=== PATIENT | female | born 1995 | race Caucasian/White ===

== ENCOUNTER 2021-05-29 15:30 | Inpatient (IN) | payer MEDICAID, SELFPAY ==
[~2021-05-29] VITALS: Ht 160 cm; Wt 90.7 kg
[2021-05-29] MEDS ORDERED: METHYLERGONOVINE 0.2 MG/ML AMP IM PRN (16:05)
[2021-05-29] MEDS: LACTATED RINGERS 1,000 ML IV SCH ×2 (16:05→19:46)
[2021-05-29] MEDS ORDERED: PROMETHAZINE 25 MG/ML VIAL IM PRN (16:05)
[2021-05-29] MEDS ORDERED: NALBUPHINE 10 MG/ML AMP IVP PRN (16:05)
[2021-05-29] MEDS ORDERED: OXYTOCIN 20 UNITS in LACTATED RINGERS 1,000 ML IV SCH (16:05)
[2021-05-29 16:50] LABS: BASOPHILS % (AUTO) 0.4 % (0.0-2.0); HEMATOCRIT 27.2 % (36-48); HEMOGLOBIN 8.6 g/dL (12.0-16.0); LYMPHOCYTES # (AUTO) 1.5 K/uL (2.5-16.5); LYMPHOCYTES % (AUTO) 18.6 % (20.5-51.1); MEAN CORPUSCULAR HEMOGLOBIN 22 pg (27-31); MEAN CORPUSCULAR HGB CONC 32 g/dL (33-37); MEAN CORPUSCULAR VOLUME 70.1 fL (80-94); MONOCYTES # (AUTO) 0.8 K/uL (0.8-1.0); MONOCYTES % (AUTO) 9.2 % (1.7-9.3); NEUTROPHILS # (AUTO) 5.9 K/uL (1.8-7.7); NEUTROPHILS % (AUTO) 71.8 % (42.2-75.2); PLATELET COUNT (AUTO) 220 K/uL (140-450); RED BLOOD CELL COUNT(AUTO) 3.88 MIL/uL (4.20-5.40); RED CELL DISTRIBUTION WIDTH 15.2 % (11.6-13.7); WHITE BLOOD COUNT (AUTO) 8.2 K/uL (4.8-10.8)
[2021-05-29 17:06] LABS: ALBUMIN 2.7 g/dL (3.4-5.0); ANION GAP 15.6 (8-16); CARBON DIOXIDE 23.5 mmol/L (21-32); CREATININE 0.9 mg/dL (0.6-1.3); POTASSIUM 4.1 mmol/L (3.5-5.1); TOTAL BILIRUBIN 0.4 mg/dL (0.0-1.0)
[2021-05-29 18:14] VITALS: BP 123/67
[2021-05-29] MEDS ORDERED: OXYTOCIN 20 UNITS/LR PREMIX 1,000 ML IV ONE (18:51)
[2021-05-29] MEDS ORDERED: ROPIVACAINE 0.2%/NS PREMIX 200 ML EPI ONE (19:07)
[2021-05-30] MEDS ORDERED: IBUPROFEN 800 MG TAB PO PRN (00:05)
[2021-05-30] MEDS ORDERED: OXYTOCIN 10 UNITS/ML VIAL IM PRN (00:05)
[2021-05-30] MEDS ORDERED: oxyCODONE/APAP 5/325 MG 1 TAB TAB PO PRN ×2 (00:05)
[2021-05-30] MEDS ORDERED: BENZOCAINE/MENTHOL 20%-0.5% 60 GM CAN TP PRN (00:05)
[2021-05-30] MEDS ORDERED: METHYLERGONOVINE 0.2 MG TAB PO PRN (00:05)
[2021-05-30] MEDS ORDERED: METHYLERGONOVINE 0.2 MG/ML AMP IM PRN (00:05)
[2021-05-30] MEDS ORDERED: TEMAZEPAM 15 MG CAP PO PRN (00:05)
[2021-05-30 08:06] LABS: APPEARANCE,URINE CLEAR (CLEAR); BILIRUBIN,URINE 1+ (NEGATIVE); BLOOD, URINE 1+ (NEGATIVE); COLOR,URINE YELLOW (YELLOW); LEUKOCYTE ESTERASE ,URINE NEGATIVE (NEGATIVE); NITRITE, URINE NEGATIVE (NEGATIVE); UGLUCOSE NEGATIVE (NEGATIVE)
[2021-05-30 08:07] LABS: HEMATOCRIT 26.6 % (36-48); HEMOGLOBIN 8.4 g/dL (12.0-16.0)
--- NOTE | 2021-05-30 08:44 | NUR ---
PATIENT HAS BEEN SCREENED AND CATEGORIZED LOW NUTRITION RISK. PATIENT WILL BE SEEN WITHIN 7 DAYS OF ADMISSION. 06/05/[address]
[2021-05-30 09:48] LABS: WBC,URINE 0-5 /HPF (0-5)
[2021-05-30] MEDS ORDERED: DOCUSATE SOD/SENNA 50/8.6 MG 1 TAB PO SCH (21:00)
== END 2021-05-31 16:35 | disposition home or self-care (01) | DRG 560 ==
LOC: MFCC 15:30 → OBSVTOIN 16:08 → MFCC 05-30 02:05
PROVIDERS: ADMIT Obstetrics & Gynecology; ATTEND Obstetrics & Gynecology
PROC: 10E0XZZ Delivery of Products of Conception, External Approach (ICD-10-PCS; principal; 2021-05-30)
PROC: 0UQGXZZ Repair Vagina, External Approach (ICD-10-PCS; 2021-05-30)
DX: O71.4 Obstetric high vaginal laceration alone (principal); Z37.0 Single live birth; Z3A.39 39 weeks gestation of pregnancy
CPT/HCPCS: 36415; 59409; 80053; 81001; 85018; 85025; 86592; 86886; 86900; 86901; G0378; J2300; J2550; J2590; J2795